=== PATIENT | male | born 1980 | race African-American/Black ===

== ENCOUNTER 2018-09-09 01:39 | Emergency (ER) ==
[2018-09-09 01:45] VITALS: BP 146/94; TEMP 98.2; BMI 23.7
--- NOTE | 2018-09-09 02:26 | ED.PDOC ---
General ED Provider: Dr. JOSE EDUARDO SHAFER Chief Complaint: Abdominal Pain Stated Complaint: aching sensation around and below navel area,says he has hernia there. Time Seen by Physician: 02:25 Mode of Arrival: Walk-In Information Source: Patient Exam Limitations: No limitations Referred to ED by: Other Nursing and Triage Documentation Reviewed and Agree: Yes Does patient meet sepsis criteria?: No System Inflammatory Response Syndrome: Not Applicable Sepsis Protocol: For patient's 13 years and over: Temp is 96.8 and below OR 101 and greater Pulse >90 BPM Resp >20/minute Acutely Altered Mental Status Are patient's symptoms suggestive of a new infection, such as: -Pneumonia -Skin, Soft Tissue -Endocarditis -UTI -Bone, Joint Infection -Implantable Device -Acute Abdominal Infection -Wound Infection -Meningitis -Blood Stream Catheter Infection -Unknown GI Complaint Exam - Abdominal Pain Complaint/Exam Duration: several days Symptoms Are: Still present Timing: Intermittent Initial Severity: Moderate Current Severity: Mild Location of Pain: Discrete Character: Reports: Sharp, Aching Aggravating: Reports: Movement, Food Alleviating: Reports: Rest, Position, Spontaneous resolution Associated Signs and Symptoms: Reports: Decreased activity Related History: Reports: Similar episode AAA Risk Factors: Reports: Hypertension Cardiac Risk Factors: Reports: Hypertension Testicular Torsion Risk Factors: Reports: None Surgical Obstruction Risk Factors: Reports: None Related Surgical History: Reports: None Abdominal Findings: Present: Other Genitalia Exam: Present: Normal findings Differential Diagnoses: Diverticulitis, Irritable Bowel Syndrome Review of Systems - Review Of Systems Constitutional: Reports: No symptoms Eyes: Reports: No symptoms Ears, Nose, Mouth, Throat: Reports: No symptoms Respiratory: Reports: No symptoms Cardiac: Reports: No symptoms GI: Reports: Abdominal pain : Reports: No symptoms Musculoskeletal: Reports: No symptoms Neurological: Reports: No symptoms Endocrine: Reports: No symptoms, Unexplained weight gain All Other Systems: Reviewed and Negative Past Medical History - Past Medical History Previously Healthy: Yes (had same abd pain for 1 week) Endocrine: Reports: None Cardiovascular: Reports: None Respiratory: Reports: None Hematological: Reports: None Gastrointestinal: Reports: None Genitourinary: Reports: None Neuro/Psych: Reports: None Musculoskeletal: Reports: None Cancer: Reports: None - Surgical History General Surgical History: Reports: None - Family History Family History: Reports: None - Social History Smoking Status: Current every day smoker, Heavy tobacco smoker Hx Substance Use: No Alcohol Screening: Occasionally - Immunizations Tetanus Shot up to Date: Yes Physical Exam - Physical Exam Appearance: Thin Ill-appearing: None Pain Distress: Mild Eyes: ASULO ENT: Ears normal Neck: Supple Respiratory: Airway patent Cardiovascular: RRR GI/: Soft Musculoskeletal: Normal strength Skin: Warm Neurological: Sensation intact Critical Care Note - Critical Care Note Total Time (mins): 0 Course - Course Orders, Labs, Meds: Orders Category Date Time Status URINALYSIS C & S IF INDICATED Stat LAB 09/09/18 02:[address] ABD/PEL WO RENAL STONE PROT Stat RADS 09/09/18 02:34 Ordered Vital Signs: Temp Pulse Resp BP Pulse Ox 09/09/18 01:40 98.2 F 110 H 20 146/94 H 99 Departure - Departure Time of Disposition: 03:15 Disposition: AMA Discharge Problem: Abdominal pain Condition: Good Pt referred to PMD for follow-up: No IPMP verified?: No Allergies/Adverse Reactions: Allergies No Known Allergies Allergy (Unverified 09/09/18 01:44) Home Medications: Ambulatory Orders 1 [No Reported Medications] 09/09/18
== END 2018-09-09 07:00 | disposition left against medical advice (07) ==
LOC: ED 01:39
DX: R10.9 Unspecified abdominal pain (principal); I10 Essential (primary) hypertension; Z72.0 Tobacco use
CPT/HCPCS: 99282